=== PATIENT | female | born 1985 | race Caucasian/White ===

== ENCOUNTER 2017-04-22 04:59 | Inpatient (IN) | payer OTHER ==
[~2017-04-22] VITALS: Ht 167.6 cm; Wt 94.8 kg
[2017-04-22] VITALS (22 sets, daily range): BP systolic 98–126; BP diastolic 64–85; Ht 167.6 cm; Wt 94.8 kg
[2017-04-22] MEDS ORDERED: cefOXitin/DEX(*) 2GM/50ML PREM 50 ML IVPB ONE (05:05)
[2017-04-22] MEDS ORDERED: FLUSH 10 ML SYR IVP PRN ×2 (05:05→09:10)
[2017-04-22] MEDS ORDERED: FAMOTIDINE 20 MG/50 ML PREMIX IVPB ONE (05:05)
[2017-04-22] MEDS ORDERED: METOCLOPRAMIDE 10 MG/2 ML SDV IVP ONE (05:05)
[2017-04-22] MEDS ORDERED: OMEP-137 PO (05:17)
[2017-04-22] MEDS ORDERED: PREN-127 PO (05:17)
[2017-04-22 06:01] LABS: PLATELET COUNT, AUTOMATED 196 K/uL (150-450)
[2017-04-22] MEDS: LR(*) 1000 ML BAG 1,000 ML IV SCH ×3 (06:17→09:47)
--- NOTE | 2017-04-22 07:07 | Anesthesia OB Pre-Anes Eval ---
History of Present Illness Anesthesia Start Date: Apr 22, 2017 Anesthesia Start Time: 06:50 OB Anesthesia Diagnosis: repeat c/section Complications: None known EDC: Apr 28, 2017 : 2 Para: 1 Vital Signs: Vital Signs Date Time Temp Pulse Resp B/P (MAP) Pulse Ox O2 Delivery O2 Flow Rate FiO2 04/22/17 05:15 98.2 Pain Ratin Heart Tones: WNL Result Diagram: 04/22/17 0553 Height (Inches): 66.00 Weight (Pounds): 209 BMI Calculated: 33.73 Past Medical History Medical History: asthma (hs) Surgical History: cholecystectomy, Previous Anesthesia: general, spinal Attended Childbirth Classes?: No Hx Anesthesia Reactions: No Hx Family Anesthesia Reaction: No Home Meds Reported Medications Vits W-Ca,Fe,Fa(<1MG) ( VITAMINS) 1 Each Tablet, 1 EACH PO DAILY, TAB 04/22/17 Omeprazole (OMEPRAZOLE) 20 Mg Tablet.dr, 20 MG PO BID, TAB 04/22/17 Allergies: Coded Allergies: No Known Drug Allergies (Unverified , 04/22/17) Anesthesia OB ROS Neurological: No migraines/headaches, No seizures, No neuropathy ENT: Denies Tooth caps, Denies Loose teeth, Denies Chipped teeth, Denies Dentures, Denies Bridges, Denies Retainers, Denies Veneers, Denies Implants, Denies Tongue ring Pulmonary: asthma (seasonal allergy induced. No problems in [place]), No smoker ( pks/day/yrs), No other Airway Class: ll Cardiovascular ROS: No edema, No arrhythmia GI ROS: NPO Last Solids Date: Apr 21, 2017 ROS: No Herpes, No STD(s), No Liver Disease, No Renal Disease Endocrine ROS: No diabetes, No gestational diabetes, No thyroid disorder Musculoskeletal ROS: No low back pain, No low back injury, No scoliosis Assessment and Plan Anesthesia Plan: SAB Assessment Past Medical, Surgical, Family and Obstetric Histories reviewed. Please see ACOG chart. Spinal block risks and benefits explained to patient's satisfaction. General anesthesia risks and benefits explained to patient's satisfaction. AMMON HANNA CRNA Apr 22, 2017 07:07
[2017-04-22] MEDS ORDERED: NALBUPHINE HCL 10 MG/ML AMP IVP PRN (07:10)
[2017-04-22] MEDS ORDERED: ONDANSETRON 4 MG/2 ML VIAL IVP PRN (07:10)
[2017-04-22] MEDS ORDERED: NALOXONE HCL 0.4 MG/ML VIAL IV PRN (07:10)
--- NOTE | 2017-04-22 07:20 | History & Physical ---
History of Present Illness Age of Patient: 31 : 2 Para or TPAL: 1001 EDC per LMP: Apr 28, 2017 Estimated Gestational Age: 39.1 Chief Complaint h/o c section History of Present Illness The patient is a 31 year old 2 para 1001 admitted at 39 1/7 weeks estimated gestational age with an estimated date of delivery 04/28/17. Patient is admitted for RLTCS with history of c section. No vaginal bleeding. Good movement and occasional contractions. She was evaluated for active labor. She had an uncomplicated course. Her record was reviewed. History Allergies: Coded Allergies: No Known Drug Allergies (Unverified , 04/22/17) Med Rec Home Meds Reported Medications Vits W-Ca,Fe,Fa(<1MG) ( VITAMINS) 1 Each Tablet, 1 EACH PO DAILY, TAB 04/22/17 Omeprazole (OMEPRAZOLE) 20 Mg Tablet.dr, 20 MG PO BID, TAB 04/22/17 Exam General Exam Vital Signs Vital Signs Date Time Temp Pulse Resp B/P (MAP) Pulse Ox O2 Delivery O2 Flow Rate FiO2 04/22/17 05:15 98.2 Cardiovascular: Regular Rate and Rhythm Respiratory: Clear to Auscultation Abdomen: Gravid - Non-Tender Extremities: No Edema Uterine Contractions(Q min): 6 Uterine Contraction Strength: Mild Fetus Heart Tones: 120 Heart Tone Variabilty: Moderate FHT Category: I Medical Decision Making Data Points Result Diagram: 04/22/17 0553 Assessment and Plan Problems: (1) History of Assessment & Plan: h/o c section , plan RLTCS Copies to: SARIKA PAINTER MD, JOHN MD Apr 22, 2017 07:20
[2017-04-22] MEDS ORDERED: FAMOTIDINE(*) 20MG/50ML PREMIX 50 ML IVPB PRN (09:09)
[2017-04-22] MEDS ORDERED: OXYTOCIN 30 UNIT/D5LR 500 ML 500 ML IV PRN (09:09)
[2017-04-22] MEDS ORDERED: PROMETHAZINE 25 MG/ML 1 ML AMP IVP PRN (09:10)
[2017-04-22] MEDS ORDERED: METOCLOPRAMIDE 10 MG/2 ML SDV IV PRN (09:10)
[2017-04-22] MEDS ORDERED: LANOLIN OINT 7 GM TUBE TP PRN (09:10)
[2017-04-22] MEDS ORDERED: ONDANSETRON 4 MG/2 ML VIAL IV PRN (09:10)
--- NOTE | 2017-04-22 09:21 | Post Operative Note ---
Operative Note - RETORT LOAD EXPEDITER Operative Day Date: Apr 22, 2017 Time: 08:30 Physicians Surgeon: INOCENCIO Dietetics Teacher: BEBETO Anesthesia: JACQUES Diagnosis Pre-Op Diagnosis: IUP AT 39 1/7 H/O C SECTION Post-Op Diagnosis: SAME UTERINE ATONY Procedure Findings: FEMALE APGARS 9/9 WT. 3940 GMS 8# 11 OZ. NORMAL UTERUS OVARIES AND TUBES [id number] Procedure(s): RLTCS Complications: 0 Fluids Fluids: 2250 CC NR IV Estimated Blood Loss: 750 CC Dictated Date OP Note Dictated: Apr 22, 2017 Time OP Note Dictated: 09:18 Copies to: SARIKA PAINTER MD, JOHN MD Apr 22, 2017 09:21
[2017-04-22] MEDS: ACETAMINOPHEN(*)1000 MG/100 ML 100 ML IVPB SCH ×2 (10:31→18:03)
[2017-04-22] MEDS ORDERED: KETOROLAC 30 MG/ML VIAL IVP SCH (11:00)
[2017-04-22] MEDS ORDERED: HYDROmorphone HCL 2 MG TAB PO PRN (11:45)
[2017-04-22] MEDS: SIMETHICONE 80 MG CHEW CHEW SCH ×3 (13:57→20:32)
[2017-04-22] MEDS: DLR(*) 1000 ML BAG 1,000 ML IV PRN ×2 (13:58→22:38)
[2017-04-22] MEDS: KETOROLAC 30 MG/ML VIAL IVP SCH ×2 (13:58→20:32)
--- NOTE | 2017-04-22 17:36 | OPERATIVE REPORT 1 ---
EVENT DATE: April 22, 2017 SURGEON: Morris Cazares MD ANESTHESIOLOGIST: Valentina Singletary CRNA ANESTHESIA: Intrathecal. COFFEE GRINDER: Ángel Domingo DO PREOPERATIVE DIAGNOSES 1. Intrauterine at 39-1/7 weeks. 2. History of section. POSTOPERATIVE DIAGNOSES 1. Intrauterine at 39-1/7 weeks. 2. History of section. 3. Uterine atony. PROCEDURE PERFORMED Repeat low transverse section. COMPLICATIONS None. FLUIDS Normosol 2250 mL IV. ESTIMATED BLOOD LOSS 750 mL INDICATIONS The patient is a 31-year-old G2, P1, admitted at 39-1/7 weeks with history of C- section and desire for repeat low transverse . After a discussion of the risks and alternatives, the patient desired to proceed. FINDINGS Female with Apgars of 9 at one minute and 9 at five minutes. Weight was 3940 g or 8 pounds 11 ounces. Normal-appearing uterus, ovaries, and tubes. DESCRIPTION OF PROCEDURE After informed consent was obtained, the patient was taken to the operating room with the IV running. She was placed in a sitting position where the intrathecal anesthetic was obtained without difficulty. She was then placed in the supine position with a leftward tilt, and a Covarrubias catheter was placed. She was prepped and draped in the usual fashion. A Pfannenstiel skin incision was identified, and scarred skin surfaces were removed with a scalpel and then the Bovie. The incision was carried to the underlying layer of fascia with the Bovie. The fascia was nicked in the midline and extended laterally with Miller scissors bilaterally. The fascia was dissected off the rectus muscles with both blunt and sharp dissection in the superior, then inferior aspects of the incision. The peritoneum was entered sharply with Metzenbaum scissors. The peritoneal incision was extended superiorly, then inferiorly with good visualization of the bladder. A bladder blade was placed. The bladder flap was created with Metzenbaum scissors. There was just a peritoneal windowing from the lower uterine segment. The bladder blade was replaced. When creating the bladder flap, the amniotic membrane was entered. The incision was extended laterally with digital technique by the hydraulic oil tool operator. The 's vertex was delivered through the uterine incision. The oropharynx and nasopharynx were bulb suctioned. The nuchal was delivered around the head as necessary for delivery. The remainder of the delivered with ease. The oropharynx and nasopharynx were bulb suctioned. The infant was noted to have spontaneous cry and spontaneous movement in all four extremities. The cord was clamped times two and cut. The infant was handed to the awaiting nursing personnel who were in attendance for delivery. Cord blood was obtained. The placenta delivered intact manually. The uterus was exteriorized and cleared of all clot and debris. The uterine incision was closed with 0 Vicryl in a running locked fashion. A second imbricating layer of 0 Vicryl was used. The posterior cul-de -sac was copiously irrigated. The incision was noted to be hemostatic. The uterus was returned to the abdominal cavity. The left and right pericolic gutters were cleared of all clot and debris and irrigated. The uterine incision was once again inspected and noted to be hemostatic. The peritoneum and rectus muscles were approximated with 3-0 Vicryl Plus in a running fashion. The subfascial compartment was inspected and any bleeding made hemostatic with the Bovie. The fascia was closed with 4-0 Vicryl in a running fashion. The subcutaneous space was irrigated. Any bleeding was made hemostatic with the Bovie and reapproximated the subcutaneous fat with 3-0 Vicryl in a running fashion. The skin was closed with 4-0 Monocryl and then Dermabond. The uterus was expressed of any blood clots. The patient was then taken to the recovery room in stable condition. She had also been given Pitocin in the IV bag after the placenta delivered to help firm the uterus and an additional 0.2 of Methergine for initial atonic uterus. [facility]ICAL CENTERDaniel
[2017-04-22] MEDS: DOCUSATE CALCIUM 240 MG CAP PO SCH (20:32)
[2017-04-22] MEDS: FAMOTIDINE 20 MG TAB PO SCH (20:32)
[2017-04-23] MEDS: ACETAMINOPHEN(*)1000 MG/100 ML 100 ML IVPB SCH ×3 (00:08→11:55)
[2017-04-23] MEDS ORDERED: PER PO (00:44)
[2017-04-23] MEDS ORDERED: IBUP800T37 PO (00:44)
[2017-04-23] MEDS ORDERED: DOCU240C67 PO (00:44)
[2017-04-23] MEDS: KETOROLAC 30 MG/ML VIAL IVP SCH (02:20)
[2017-04-23 04:29] VITALS: BP 116/74
[2017-04-23 06:26] LABS: PLATELET COUNT, AUTOMATED 170 K/uL (150-450)
--- NOTE | 2017-04-23 07:35 | OB/GYN Progress Note ---
OB Subjective Progress Notes Subjective Ms. Fairbanks reports feeling overall well. Pain well controlled. Passing flatus , no nausea/emesis. . She reports feeling fatigued, and was noted to feel dizzy when sitting at edge of the bed and dangling her legs. She has not yet been up and ambulating. GI: POS Flatus, NEG Nausea, NEG Vomiting, NEG Bowel Movement : Vaginal Bleeding, Scant Pain: Comfortable, Tolerating PO Pain Meds Neurological: No Headache, No Other Eyes: No Visual Disturbances OB Objective Physical Exam Vital Signs Date Time Temp Pulse Resp B/P (MAP) Pulse Ox O2 Delivery O2 Flow Rate FiO2 04/23/17 04:29 98.1 82 16 116/74 (88) 98 Room Air 04/22/17 22:55 1.0 General Appearance: Alert/Awake/No Acute Distress Neurological: No Gross deficits Eyes: Normal Extraocular Movement & Vison Cardiovascular: Regular Rate and Rhythm Respiratory: Clear to Auscultation Abdomen: Soft, Non-Tender, Non-Distended, Fundus Firm, Non-Tender Extremities: No Cyanosis,Clubbing or Edema, No Edema Integumentary: Skin Intact without Lesions or Rash Psychological: Alert & Oriented X3, Appropriate Mood & Affect Result Diagram: 04/23/17 0604 Assessment and Plan Problems: (1) History of Status: Resolved (2) Status post delivery Status: Acute Assessment & Plan: 31yo P2 POD 1 s/p repeat c/s. Overall feeling well. . Lab called with critical H/h 10/30. Patient was dizzy with sitting on edge of bed and dangling feet. Vitals are reassuring, no tachycardia , urine output excellent. We discussed starting iron supplementation, and transfusion of 2 units packed cells if remains symptomatic. MARIANA LUCAS MD Apr 23, 2017 07:34
[2017-04-23 07:45] VITALS: BP 121/69
[2017-04-23] MEDS: IBUPROFEN 800 MG TAB PO SCH ×2 (08:21→16:02)
[2017-04-23] MEDS: DOCUSATE CALCIUM 240 MG CAP PO SCH ×2 (08:21→20:55)
[2017-04-23] MEDS: FERROUS SULFATE 325 MG TAB PO SCH ×2 (08:21→16:02)
[2017-04-23] MEDS: FAMOTIDINE 20 MG TAB PO SCH ×2 (08:21→20:55)
[2017-04-23] MEDS: SIMETHICONE 80 MG CHEW CHEW SCH ×4 (08:21→20:55)
[2017-04-23] MEDS: DLR(*) 1000 ML BAG 1,000 ML IV PRN (08:22)
[2017-04-23 10:35] VITALS: BP 117/84
--- NOTE | 2017-04-23 12:35 | Anesthesia Post Eval Note ---
Anesthesia Post Eval Note Pt able to participate in Eval: Yes Cardiovascular Status: Satisfactory Respiratory Status: Satisfactory Pain Managment: Satisfactory PO Nausea/Vomiting: Satisfactory Temperature Management: Satisfactory Mental Status: Satisfactory Post-Op Hydration Status: Satisfactory Anesthesia Type: SAB Anesthesia Tolerance: No anesthetic complications. Well-controlled pain. Vital signs stable. H&H decreased but patient is asymptomatic. MILDAYS ROMERO CRNA Apr 23, 2017 12:35
[2017-04-23] MEDS ORDERED: FERR-53 PO (12:43)
[2017-04-23] MEDS: HYDROmorphone HCL 2 MG TAB PO PRN ×2 (13:02→21:48)
[2017-04-23 13:15] VITALS: BP 109/66
[2017-04-23 16:40] VITALS: BP 119/69
[2017-04-23] MEDS ORDERED: FAMOTIDINE 20 MG TAB PO ONE (17:35)
[2017-04-23 19:36] VITALS: BP 127/78
[2017-04-24 00:11] VITALS: BP 124/73
[2017-04-24] MEDS: IBUPROFEN 800 MG TAB PO SCH ×2 (00:11→08:21)
[2017-04-24 04:41] VITALS: BP 113/69
[2017-04-24] MEDS ORDERED: HYDR2TAB4 PO (07:37)
[2017-04-24 07:45] VITALS: BP 122/75
--- NOTE | 2017-04-24 07:49 | OB/GYN Progress Note ---
OB Subjective Progress Notes Subjective Patient reports tolerating regular diet. Pumping. Passing gas. No BM yet. Tolerating PO pain meds. GI: POS Flatus, NEG Nausea, NEG Vomiting, NEG Bowel Movement : Vaginal Bleeding, Moderate Pain: Mild, Tolerating PO Pain Meds Neurological: No Headache, No Other Eyes: No Visual Disturbances OB Objective Physical Exam Vital Signs Date Time Temp Pulse Resp B/P (MAP) Pulse Ox O2 Delivery O2 Flow Rate FiO2 04/24/17 04:41 98.5 100 20 113/69 (84) Room Air 04/23/17 16:40 95 04/22/17 22:55 1.0 General Appearance: Alert/Awake/No Acute Distress Neurological: No Gross deficits Eyes: Normal Extraocular Movement & Vison Cardiovascular: Regular Rate and Rhythm Respiratory: Clear to Auscultation Abdomen: Soft, Non-Tender, Non-Distended, Fundus Firm, Non-Tender Incision: Clean, Dry, Intact Extremities: No Cyanosis,Clubbing or Edema, No Edema Integumentary: Skin Intact without Lesions or Rash Psychological: Alert & Oriented X3, Appropriate Mood & Affect Result Diagram: 04/23/17 0604 Assessment and Plan Problems: (1) History of Status: Resolved (2) Status post delivery Onset Date: ~ 04/2017 Status: Acute Assessment & Plan: 31yo P2 POD 2 s/p repeat c/s. Overall feeling well. Pumping. Acute post-operative blood loss anemia. Asymptomatic. Doing well on iron. Tolerating regular diet and PO pain meds. -allow discharge home today -routine pp instructions -revisit 2 weeks and 6 weeks PP MARIANA LUCAS MD Apr 24, 2017 07:49
--- NOTE | 2017-04-24 07:50 | OB/GYN Discharge Summary ---
Discharge Summary Reason for Hosp/Final Diag: (1) History of Status: Resolved (2) Status post delivery Onset Date: ~ 04/2017 Status: Acute Hospital Course & Plan: 31yo P2 POD 2 s/p repeat c/s. Overall feeling well. Pumping. Acute post-operative blood loss anemia. Asymptomatic. Doing well on iron. Tolerating regular diet and PO pain meds. -allow discharge home today -routine pp instructions -revisit 2 weeks and 6 weeks PP [place] Vital Signs Vital Signs Date Time Temp Pulse Resp B/P (MAP) Pulse Ox O2 Delivery O2 Flow Rate FiO2 04/24/17 04:41 98.5 100 20 113/69 (84) Room Air 04/23/17 16:40 95 04/22/17 22:55 1.0 Weight (Pounds): 209 Result Diagram: 04/23/17603 Condition: Improved Discharge: Home Home Meds Active Scripts Hydromorphone Hcl (HYDROMORPHONE HCL) 2 Mg Tablet, 2-4 MG PO Q4H Y for PAIN for 7 Days, #30 TAB Prov:MARIANA LUCAS MD 04/24/17 Ferrous Sulfate (FERROUS SULFATE) 325 Mg Tablet, 325 MG PO BIDBS for 30 Days, # 60 TAB 2 Refills Prov:MARIANA LUCAS MD 04/23/17 Oxycodone/Acetaminophen (OXYCODONE/ACETAMINOPHEN 5MG/325 MG) 5 Mg/325 Mg Tab, 1- 2 TAB PO Q4H Y for PAIN for 7 Days, #30 TAB Prov:MARIANA LUCAS MD 04/23/17 Ibuprofen (IBUPROFEN) 800 Mg Tablet, 800 MG PO Q8H@0000,0800,1600 for 14 Days, # 42 TAB 1 Refill Prov:MARIANA LUCAS MD 04/23/17 Docusate Calcium (DOCUSATE CALCIUM) 240 Mg Capsule, 240 MG PO BID for 30 Days, # 60 CAPSULE 1 Refill Prov:MARIANA LUCAS MD 04/23/17 Reported Medications Vits W-Ca,Fe,Fa(<1MG) ( VITAMINS) 1 Each Tablet, 1 EACH PO DAILY, TAB 04/22/17 Omeprazole (OMEPRAZOLE) 20 Mg Tablet.dr, 20 MG PO BID, TAB 04/22/17 [facility] [phone] Follow up in: 6 wks PP or PO, 2 wks PO Discharge Diet: As Tolerates Discharge Activity: Pelvic Rest MARIANA LUCAS MD Apr 24, 2017 07:50
[2017-04-24] MEDS: FERROUS SULFATE 325 MG TAB PO SCH (08:21)
[2017-04-24] MEDS: FAMOTIDINE 20 MG TAB PO SCH (08:21)
[2017-04-24] MEDS: DOCUSATE CALCIUM 240 MG CAP PO SCH (08:21)
[2017-04-24] MEDS: SIMETHICONE 80 MG CHEW CHEW SCH (08:21)
[2017-04-24] MEDS ORDERED: INFLUENZA VIRUS VAC 0.5 ML SYR IM ONLY ONE (09:10)
[2017-04-24] MEDS: HYDROmorphone HCL 2 MG TAB PO PRN (10:43)
== END 2017-04-24 11:15 | disposition home or self-care (01) | DRG 765 ==
LOC: OB 04:59
PROVIDERS: ADMIT Obstetrics & Gynecology; ATTEND Obstetrics & Gynecology
PROC: 10D00Z1 Extraction of Products of Conception, Low, Open Approach (ICD-10-PCS; principal; 2017-04-22 07:30)
DX: O34.211 Maternal care for low transverse scar from previous cesarean delivery (principal); O72.1 Other immediate postpartum hemorrhage; D62 Acute posthemorrhagic anemia; O69.81X0 Labor and delivery complicated by cord around neck, without compression, not applicable or unspecified; O90.81 Anemia of the puerperium; Z3A.39 39 weeks gestation of pregnancy; Z37.0 Single live birth; Z90.49 Acquired absence of other specified parts of digestive tract
CPT/HCPCS: 36415; 85025; 86850; 86900; 86901; J0131; J0694; J1885; J2765; J3490; J7120